=== PATIENT | female | born 1970 | race Two or more races ===

== ENCOUNTER 2019-11-24 14:16 | Emergency (ER) | payer MEDICARE, OTHER ==
[~2019-11-24] VITALS: Ht 162.6 cm; Wt 113.4 kg
[2019-11-24 15:10] VITALS: BP 121/89
[2019-11-24 15:41] LABS: Urine Bacteria FEW /hpf (None Seen); Urine Blood 2+ /uL (Negative); Urine Specific Gravity 1.014 (1.001-1.035); Urine WBC 1048 /hpf (0 - 5); Urine WBC Clumps PRESENT /hpf (None Seen)
[2019-11-24] MEDS ORDERED: PHENAZOPYRIDINE HCL 100 MG TAB PO ONE (16:00)
[2019-11-24] MEDS ORDERED: cefTRIAXone SOD 1,000 MG VL IM ONE (16:00)
== END 2019-11-24 16:23 | disposition home or self-care (01) ==
LOC: ER 14:20
DX: N39.0 Urinary tract infection, site not specified (principal)
CPT/HCPCS: 81001; 96372; 99283; J0696